=== PATIENT | female | born 1955 | race Caucasian/White ===

== ENCOUNTER 2019-03-15 20:14 | Emergency (ER) | payer OTHER, SELFPAY ==
[2019-03-15 20:21] VITALS: BP 126/80; PULSE 104; RESP 18; TEMP 37.4; O2SAT 100
--- NOTE | 2019-03-15 20:27 | ECG_ITS ---
Measurements Intervals Baker Rate: 98 P: 49 VT: 116 QRS: -26 QRSD: 94 T: 16 QT: 311 QTc: 398 Interpretive Statements SINUS RHYTHM WITH SHORT VT INTERVAL BORDERLINE T WAVE ABNORMALITY- INFERIOR LEADS BASELINE ARTIFACT- I, II, AVR, AVL, AVF, V1, V6 BORDERLINE ECG Electronically Signed On 03-16-2019 7:17:38 BREASTFEEDING PEER COUNSELOR by Sam Wright D.O.
[2019-03-15 20:42] LABS: Basophils Absolute Auto 0.1 K/mm3 (0.0-0.1); Basophils Percent Auto 1.2 % (0.2-1.2); Eosinophils Absolute Auto 0.5 K/mm3 (0-0.3); Hematocrit 40.9 % (37.0-47.0); Hemoglobin 13.5 g/dL (12.0-15.0); Immature Granulocyte Absolute 0.03 K/mm3 (0.00-0.031); Immature Granulocyte Percent A 0.3 % (0-0.5); Lymphocytes Absolute Auto 3.42 K/mm3 (0.9-3.2); Lymphocytes Percent Auto 33.9 % (18.3-44.2); Mean Corpuscular Hemoglobin 30.6 pg (26-34); Mean Corpuscular Volume 92.7 fl (80-100); Mean Platelet Volume 10.1 fl (7.4-10.4); Monocytes Absolute Auto 0.8 K/mm3 (0.1-0.6); Monocytes Percent Auto 8.2 % (2.6-8.5); Neutrophils Absolute Auto 5.2 K/mm3 (1.3-6.7); Neutrophils Percent Auto 51.4 % (45.5-73.1); Platelet Count Result 320 k/mm3 (150-375); Red Blood Count 4.41 M/mm3 (4.2-5.4); Red Cell Distribution Width 13.4 % (11.5-14.5); White Blood Count 10.1 K/mm3 (4.5-10.0)
[2019-03-15 20:51] LABS: INR 0.9; Prothrombin Time 11.6 Seconds (11.1-14.7)
[2019-03-15 20:52] LABS: Partial Thromboplastin Time 27.5 SECONDS (22.3-36.8)
[2019-03-15 20:53] LABS: Blood Urea Nitrogen 12 mg/dL (7-17); Calcium 9.5 mg/dL (8.4-10.2); Carbon Dioxide 26 mmol/L (22-30); Chloride 103 mmol/L (98-107); Estimated CRCL calculation 65 ml/min; Estimated Glomerular Filt Rate > 60; Glucose 107 mg/dL (65-105); Potassium 4.1 mmol/L (3.4-5.0); Sodium 137 mmol/L (137-145)
[2019-03-15 21:05] LABS: Troponin I < 0.012 ng/mL (0.000-0.034)
--- NOTE | 2019-03-15 21:50 | PC.NURSE ---
Pt called for room twice, no response. x ray called for pt, no response in waiting room. Pt last seem walking with family to get some air out of ED waiting room.
== END 2019-03-15 21:50 | disposition left against medical advice (07) ==
PROVIDERS: Emergency Provider Emergency Medicine
DX: R07.9 Chest pain, unspecified (principal)
CPT/HCPCS: 36415; 80048; 84484; 85025; 85610; 85730; 93005; 99199

== ENCOUNTER 2019-12-29 02:56 | Outpatient (CLI) | payer MEDICARE, SELFPAY ==
[2019-12-29 19:46] LABS: SARS-CoV-2 RNA PCR Negative
== END 2019-12-29 02:57 | disposition home or self-care (01) ==
LOC: ANHCOVIDDT 02:56
PROVIDERS: PCP Family Medicine; Visit Provider Podiatrist Foot & Ankle Surgery
DX: Z01.818 Encounter for other preprocedural examination (principal); Z20.828 Contact with and (suspected) exposure to other viral communicable diseases
CPT/HCPCS: 87635; C9803; U0003

== ENCOUNTER 2020-01-01 04:39 | Day surgery (SDC) | payer MEDICARE, SELFPAY ==
[2019-12-24 15:03] VITALS: BMI 25.7
--- NOTE | 2019-12-31 08:45 | WPDANESEPPF ---
Anes - Initial Pre Proc Eval Procedure: Operation Date: 01/01/20 11:30 Proposed Procedures p Arthrodesis First Metatarsophalangeal Joint Right Foot - Tod Bacon JR, MD Date/Time: 12/31/19 08:45 Surgeon: Tod Bacon JR, MD Pre Op Diagnosis: Arthritic Bunion Right Foot Patient Data Age: 64 Gender: F Height: 1.63 m Weight: 68.05 kg Allergies Allergy/AdvReac Type Severity Reaction Status Date / Time DIAL SOAP Allergy Intermediate Hives/ITCHI Uncoded 01/01/20 10:59 NG Home Medications Medication Instructions Recorded Confirmed Type Complete Multivitamin 1 tablet PO DAILY 12/24/19 01/01/20 History ycbczrx-uvvknfcmivgm-zlxyxxpz 1 packet PO QAM 12/24/19 01/01/20 History ibuprofen 800 mg PO QAM 12/24/19 01/01/20 History Patient hx anesthesia problems: none Family hx anesthesia problems: none PMFSH Past Medical History Medical History (Updated 01/04/20 @ 11:52 by Keisha Stewart PA-C) Bunion of great toe of right foot s/p repair Osteoarthritis Surgical History Surgical History History of hysterectomy w/o oophrectomy History of lumbar surgery History of neck surgery History of tonsillectomy Family History Family History (Updated 10/16/19 @ 13:29 by Boyd Dumont MD) Father Lung cancer Mother Breast cancer Hypertension Social History Social History Smoking packs per day: 1 Smoking cigarettes per day: 20.0 Years smoked: 40 Smoking pack-years: 40.00 Smoking status: Former smoker Tobacco type: cigarettes Second hand tobacco smoke exposure: No Smoking end date: 12/16/19 Alcohol intake: current Drinks per week: 3 Substance use: never Substance use type: does not use Living arrangements: with family Gender identity (if verbalized by the patient): Female Spiritual care concerns: No Anes - Eval Final PreProcedure Day of Procedure 12/31/19 08:45 Patient weight: overweight Heart: regular rate and rhythm Lungs: clear to auscultation and normal air movement Airway: Mallampati scale class II Neurological: alert and oriented Last oral intake: >/= 8 hours ASA classification: II Emergent: no Anesthetic plan: proceed Anesthesia type and monitoring: general LMA and standard monitoring Informed Consent: The patient's anesthetic plan and its attendant risks and benefits were discussed with the patient/family/POA. Questions were solicited and answers provided to the satisfaction of the patient/family/POA.
--- NOTE | 2019-12-31 08:49 | WPDANESPNB ---
Anes - Peripheral Nerve Block Date/Time: 12/31/19 08:49 I have discussed with the patient/family/POA the placement of a peripheral nerve block for post-operative pain management, including associated risks, benefits, complications, and side effects. Alternative methods of post-operative analgesia were detailed. Questions were solicited and answers provided to the satisfaction of the patient/family/POA. Time-Out: A pre-procedural Time-Out was completed immediately before starting the procedure and confirmed: Patient Identification, Site, Procedure, Patient Position and the Availability of Requisite Equipment. Clinical Indications: Acute post-operative pain management requested by the operative surgeon. Nerve Block Insertion Note Anes-nerve block: posterior fossa sciatic right and adductor canal right Patient position: supine (for adductor canal) and other (right lateral for popliteal) Skin prep: chlorhexidine Needle: 22 gauge, stimulating, insulated echogenic needle. Needle length: 80 mm Technique: nerve stimulation lost at (mA) (for popliteal lost at 0.2) and ultrasound Injectate: bupivacaine 0.5% with epi 5 mcg/ml (20 mL for popliteal, 10 mL for adductor canal) Observations: tolerated well Complications: none
[2020-01-01] VITALS (7 sets, daily range): BP systolic 111–128; BP diastolic 62–73; PULSE 54–72; RESP 16–20; TEMP 36.3–36.6; O2SAT 96–100
--- NOTE | ~2020-01-01 | XR_ITS ---
XR surgery orthopedic DATE: 01/01/2020 12:41 INDICATION: Right foot arthrodesis TECHNIQUE: AP and lateral spot images of the forefoot 7 seconds fluoroscopy time 0.5729 cGycm2 total DAP COMPARISON: None FINDINGS: There is a plate bridging the dorsal aspect of the first ray from the region of the first m etatarsal neck to the mid to distal shaft of the proximal phalanx, secured by posteroanteriorly direc shital screws at the distal first metatarsal and the proximal to mid shaft of the proximal phalanx. IMPRESSION: First metatarsophalangeal arthrodesis Reviewed, dictated and finalized at [facility]. Reviewed, dictated and finalized at location [facility]. CE TECHNOLOGY PROFESSOR
--- NOTE | 2020-01-01 07:19 | WPDHPUPDATE1 ---
History and Physical Update Update Date/Time: 01/01/20 07:19 History and Physical has been reviewed, including an updated exam of the patient. There are NO changes in the patient's condition. Risks, benefits, and alternatives have been discussed and questions answered. Patient agrees to proceed with procedure.
[2020-01-01] MEDS: LACTATED RINGERS 1,000 ML 30 ML IV CONT (10:30)
[2020-01-01] MEDS: ceFAZolin 2 GM/D5W 50 ML 2 GM/50 ML BAG IVPB (11:37)
[2020-01-01] MEDS: KETOROLAC 30 MG/ML VIAL (*BKC) IV PUSH (12:43)
--- NOTE | 2020-01-01 12:57 | PM.OP ---
Procedure Note - Brief Procedure Note - Brief Date of procedure: 01/01/20 Pre-op diagnosis: Arthritic Bunion Right Foot Post-op diagnosis: same Procedure performed: Arthrodesis of the first metatarsal phalangeal joint right foot Anesthesia: GLMA Surgeon: Tod Bacon JR, DPM Estimated blood loss (mL): 1 Complications: No immediate complications Condition: stable Disposition: same day
--- NOTE | 2020-01-01 23:49 | OP_ITS ---
DATE OF PROCEDURE: 01/01/2020 PREOPERATIVE DIAGNOSIS: Arthritic bunion deformity, right foot. POSTOPERATIVE DIAGNOSIS: Arthritic bunion deformity, right foot. PROCEDURE: Arthrodesis of the 1st metatarsophalangeal joint right foot. PATHOLOGY: None. ANESTHESIA: General with local. HEMOSTASIS: Pneumatic ankle tourniquet at 250 mmHg. ESTIMATED BLOOD LOSS: Minimal. MATERIALS USED: 1 cross check [employer] plate with 4 CicerOOs screws, 3 were 2.7 mm locking screws and 1 was a 3.5 mm nonlocking screw, 3-0 Vicryl, 4-0 Vicryl and 4-0 Monocryl. INJECTABLES: 20 cc of Exparel injected preoperatively. COMPLICATIONS: None. PROCEDURE IN DETAIL: Under mild sedation, the patient was brought into the operative room, placed on the operating room table in the supine position. Pneumatic ankle tourniquet was placed about the patient's right ankle. Following general anesthesia, local anesthesia obtained about the right foot utilizing 20 cc of Exparel. The foot was then scrubbed, prepped, and draped in the usual aseptic manner. An Esmarch bandage was then used to exsanguinate the patient's right foot and the pneumatic ankle tourniquet was then inflated. Attention was directed to the dorsal aspect of the 1st metatarsophalangeal joint of the right foot where incision was made just medial to the extensor hallucis longus tendon. The patient had significant bunion deformity with decreased range of motion and edema present. The incision was continued deep down through the subcutaneous tissues using sharp and blunt dissection. All bleeders were ligated and cauterized as necessary. At this point, a full length periosteal incision was made, a full length of the skin incision, which extended from just proximal to the interphalangeal joint of the hallux and extending to the distal metaphyseal-diaphyseal junction of the 1st metatarsal. The periosteum and capsular structures were freed from the osseous attachments and the base of the proximal phalanx as well as the distal 1st metatarsal were exposed at the operative site. The extensor hallucis longus tendon was retracted laterally. At this point, utilizing the provided CicerOOs reamer system, the denuded and damaged cartilage from both the head of the 1st metatarsal and base of the proximal phalanx was resected. Next, a 2-0 drill bit was used to fenestrate the head of the 1st metatarsal base of the proximal phalanx in order to promote fusion. Next, the [facility] crosscheck plate was placed atop the 1st metatarsophalangeal joint. The 2 distal drill holes were drilled from dorsal to plantar across the proximal phalanx, and two 2.7 locking screws were driven from dorsal to plantar. . Excellent position was noted of the hallux utilizing fluoroscopy with clear reduction of the hallux abductus angle. The hallux was also noted to set in a rectus position in a sagittal plane. No elevatus of the hallux was noted. Next, two proximal holes were drilled, The proximal most being a 3.5 mm nonlocking screw drilled eccentrically that served to provide dynamic compression in order to compress across the 1st metatarsophalangeal joint. Excellent compression was noted. Next, the final 2.7 mm locking screw was driven slightly distal. Once again, fluoroscopy was used to make sure that there was adequate compression across the 1st metatarsophalangeal joint and also to make sure that the screws and plate were appropriately aligned and oriented. The wound site was then flushed with copious amounts of sterile saline. Next, the periosteum and capsular structures were reapproximated coapted utilizing 3-0 PDS. Next, the subcutaneous structures were reapproximated and coapted utilizing 4-0 Vicryl. Next, the skin was reapproximated and coapted utilizing 4-0 Monocryl in a
== END 2020-01-01 14:33 | disposition home or self-care (01) ==
PROVIDERS: PCP Family Medicine; Visit Provider Podiatrist Foot & Ankle Surgery
PROC: (CPT 28750; principal; 2020-01-01 11:30)
DX: M21.611 Bunion of right foot (principal); Z87.891 Personal history of nicotine dependence
CPT/HCPCS: 28750; C1713; C9290; C9803; J0690; J1100; J1885; J2250; J2405; J2704; J3010; J7120; U0003

== ENCOUNTER 2021-06-06 08:40 | Outpatient (CLI) | payer MEDICARE, SELFPAY ==
--- NOTE | ~2021-06-06 | XR_ITS ---
XR_FOOTSTNDR3_CR DATE: 06/06/2021 09:57 INDICATION: Right foot pain TECHNIQUE: 4 views COMPARISON: None FINDINGS: There is surgical fusion with plate and screws along the dorsal aspect of the first metatar sophalangeal joint. There is mild plantar calcaneal enthesopathy. There is diffuse osteopenia. No fracture or dislocation, periosteal reaction or bone destruction. IMPRESSION: Status post arthrodesis at first metatarsophalangeal joint Mild plantar calcaneal enthesopathy Reviewed, dictated and finalized at [facility]. Reviewed, dictated and finalized at location [facility].
== END 2021-06-06 08:41 ==
PROVIDERS: PCP Physician Assistant; Visit Provider Physician Assistant
DX: M79.671 Pain in right foot (principal); M77.31 Calcaneal spur, right foot
CPT/HCPCS: 73630

== ENCOUNTER 2022-08-02 11:22 | Outpatient (CLI) | payer MEDICARE, SELFPAY ==
--- NOTE | ~2022-08-02 | XR_ITS ---
Left Shoulder Technique: AP and scapular Y views were obtained. Clinical History: Pain Findings: No fracture or dislocation is seen. Osseous alignment is anatomic. Inferomedial humeral hea d osteophyte is present, with diffuse joint space narrowing. Soft tissues are unremarkable. Impression: Moderate 2 advanced glenohumeral joint degenerative change, as detailed above. Reviewed, dictated and finalized at location . Impression: Moderate 2 advanced glenohumeral joint degenerative change, as detailed above.
--- NOTE | ~2022-08-02 | CT_ITS ---
EXAMINATION: CT brain wo con DATE: 08/02/2022 12:10 INDICATION: Unspecified headache TECHNIQUE: Computed tomography (CT) of the head was performed without intravenous contrast. Sagittal and coronal reconstructions were performed. The mA was adjusted according to patient size. Iterative reconstruction technique was employed. The dose-length product was 605.33 mGy-cm. COMPARISON: None FINDINGS: No acute intracranial hemorrhage, acute infarction or abnormal extra axial fluid collection. There is minimal scattered white matter hypoattenuation consistent with chronic small vessel ischemic disease . Ventricles are normal and symmetric. No mass/mass effect. The orbits, paranasal sinuses and mastoid air cells are normal. IMPRESSION: 1. Normal aging brain. No acute intracranial process. Reviewed, dictated and finalized at location [facility].
== END 2022-08-02 11:23 | disposition home or self-care (01) ==
PROVIDERS: PCP Family Medicine; Visit Provider Physician Assistant
DX: H53.9 Unspecified visual disturbance (principal); R29.898 Other symptoms and signs involving the musculoskeletal system; R51.9 Headache, unspecified; R55 Syncope and collapse; M19.012 Primary osteoarthritis, left shoulder
CPT/HCPCS: 70450; 73030

== ENCOUNTER 2022-08-23 11:14 | Outpatient (CLI) | payer MEDICARE, SELFPAY ==
--- NOTE | ~2022-08-23 | US_ITS ---
EXAMINATION: US carotid duplex BI DATE: 08/23/2022 12:37 INDICATION: Transient cerebral ischemic attack. TECHNIQUE: Grayscale, color Doppler, and pulsed Doppler images of the cervical carotid arteries were obtained. The degree of vessel stenosis is placed in one of the following categories: normal, <50%, 5 0-69%, >=70% but less than near-occlusion, near-occlusion, or total occlusion. Note that percent sten osis relative to normal distal artery lumen diameter is indirectly measured from velocity measurement s as described by Gómez, et al. Radiology 2003; 229:340-346. COMPARISON: None. FINDINGS: RIGHT: The right common carotid artery (CCA) peak systolic velocity (PSV) is 108 cm/s. The right internal ca rotid artery (ICA) PSV is 111 cm/s. The right ICA end-diastolic velocity (EDV) is 40 cm/s. The right ICA/CCA PSV ratio is 1.0. Grayscale and color Doppler images yield an estimate of <50% diameter reduc tion from plaque in the ICA. The external carotid artery (ECA) PSV is 87 cm/s. There is antegrade stacia w in the right vertebral artery. LEFT: The left CCA PSV is 87 cm/s. The left ICA PSV is 88 cm/s. The left ICA EDV is 37 cm/s. The left ICA/C CA PSV ratio is 1.0. Grayscale and color Doppler images yield an estimate of <50% diameter reduction from plaque in the ICA. The ECA PSV is 89 cm/s. There is antegrade flow in the left vertebral artery. IMPRESSION: 1. <50% stenosis in the right internal carotid artery. 2. <50% stenosis in the left internal carotid artery. Reviewed, dictated and finalized at location [facility].
== END 2022-08-23 11:15 | disposition home or self-care (01) ==
PROVIDERS: PCP Family Medicine; Visit Provider Physician Assistant
DX: I65.23 Occlusion and stenosis of bilateral carotid arteries (principal)
CPT/HCPCS: 93880

== ENCOUNTER 2023-01-07 12:24 | Outpatient (CLI) | payer MEDICARE, SELFPAY ==
--- NOTE | ~2023-01-07 | CT_ITS ---
CT Scan of the Chest without Contrast: Clinical Indication: Lung cancer screening, personal history of nicotine dependence Technique: Contiguous sections were acquired throughout the chest without intravenous contrast. Dose reduction technique was used on this scan by utilizing automated exposure control and iterative recon struction technique. The dose-length product (DLP) was 164.50 mGy-cm. Findings: There is no evidence of any significant mediastinal, hilar or axillary lymphadenopathy. The mediastin al soft tissues appear normal. There is no evidence of pleural or pericardial effusion. Calcified left upper lobe granuloma noted. No other pulmonary nodule seen. Images through the upper abdomen reveal no abnormalities. Impression: Lung RADS 2: Benign appearance. 12 month follow-up screening CT advised. Reviewed, dictated and finalized at location . TIVE SERVICES COORDINATOR Impression: Lung RADS 2: Benign appearance. 12 month follow-up screening CT advised.
== END 2023-01-07 12:25 | disposition home or self-care (01) ==
LOC: ANHIMG 12:25
PROVIDERS: PCP Family Medicine; Visit Provider Physician Assistant
DX: Z12.2 Encounter for screening for malignant neoplasm of respiratory organs (principal); Z87.891 Personal history of nicotine dependence
CPT/HCPCS: 71271

== ENCOUNTER 2023-02-13 11:52 | Outpatient (CLI) | payer OTHER, SELFPAY ==
--- NOTE | ~2023-02-13 | XR_ITS ---
XR shoulder LT min 2V DATE: 02/13/2023 12:11 INDICATION: Primary osteoarthritis, left shoulder TECHNIQUE: 4 views COMPARISON: 08/02/2022 left shoulder FINDINGS: There is severe joint space narrowing and prominent at spurring at the left glenohumeral juan c int consistent with severe primary osteoarthritis. Normal alignment at the acromioclavicular and glenohumeral joints. Diffuse osteopenia. The left shoulder fracture or dislocation, periosteal reaction or bone destruction or abnormal soft t issue calcification. Aortic arch calcification. Status post anterior lower cervical spine surgical fusion. Thoracic levoscoliosis. IMPRESSION: Severe primary osteoarthritis at left glenohumeral joint Osteopenia Reviewed, dictated and finalized at location [facility]. SFORMER TESTER
== END 2023-02-13 11:53 | disposition home or self-care (01) ==
PROVIDERS: PCP Family Medicine; Visit Provider Orthopaedic Surgery
DX: M19.012 Primary osteoarthritis, left shoulder (principal); M85.812 Other specified disorders of bone density and structure, left shoulder
CPT/HCPCS: 73030

== ENCOUNTER 2023-06-25 15:51 | Outpatient (CLI) | payer OTHER, SELFPAY ==
--- NOTE | ~2023-06-25 | MM_ITS ---
EXAMINATION: MM screening khurram BI w syed HISTORY: Screening mammogram TECHNIQUE: Craniocaudal and mediolateral oblique 3-D tomosynthesis images were obtained and synthetic 2-D images were generated. CAD analysis was submitted and interpreted. COMPARISON: 12/23/2008 bilateral screening mammogram BREAST PARENCHYMAL COMPOSITION: There are scattered areas of fibroglandular density. FINDINGS: Stable mild fibroglandular asymmetry in the upper outer right breast, also present on 12/23. Scattered bilateral benign calcifications. There is no evidence of suspicious mass, calcificat ion, or architectural distortion to suggest malignancy in either breast. There has been no suspicious interval change. IMPRESSION: 1. No mammographic evidence of malignancy. 2. Recommend routine screening mammography in one year. BI-RADS Category 1: Negative Reviewed, dictated and finalized at location A.
== END 2023-06-25 15:52 | disposition home or self-care (01) ==
PROVIDERS: PCP Family Medicine; Visit Provider Physician Assistant Medical
DX: Z12.31 Encounter for screening mammogram for malignant neoplasm of breast (principal); Z80.3 Family history of malignant neoplasm of breast
CPT/HCPCS: 77063; 77067

== ENCOUNTER 2023-10-01 02:21 | Day surgery (SDC) | payer OTHER, SELFPAY ==
[2023-09-12 12:38] VITALS: BMI 29.2
[2023-10-01 09:37] VITALS: BP 119/96; PULSE 100; RESP 20; TEMP 36.4; O2SAT 99; BMI 29.9
[2023-10-01] MEDS: LACTATED RINGERS 1,000 ML 150 ML IV CONT (09:53)
--- NOTE | 2023-10-01 10:08 | WPDANESEPPF ---
Anes - Initial Pre Proc Eval Procedure: Operation Date: 10/01/23 11:00 Proposed Procedures p Screening Colonoscopy - Danny He MD Date/Time: 10/01/23 10:08 Surgeon: Danny He MD Pre Op Diagnosis: neoplasm screening Patient Data Age: 67 Gender: F Height: 1.63 m Weight: 79.1 kg Last Vital Signs Temp 97.6 F 10/01/23 09:37 Pulse 100 10/01/23 09:37 Resp 20 10/01/23 09:37 BP 119/96 H 10/01/23 09:37 Pulse Ox 99 10/01/23 09:37 O2 Del Method Room Air 10/01/23 09:37 Allergies Allergy/AdvReac Type Severity Reaction Status Date / Time DIAL SOAP Allergy Intermediate Hives/ITCHI Uncoded 10/01/23 09:36 NG Home Medications Medication Instructions Recorded Confirmed Type ibuprofen 800 mg tablet 800 mg PO QAM PAIN 12/24/19 10/01/23 History multivitamin,qs-fiik-ksvyhmld 1 tablet PO DAILY 12/24/19 10/01/23 History (Complete Multivitamin tablet) Patient hx anesthesia problems: none Family hx anesthesia problems: none Results Review: All pre-operative results and documents have been reviewed as part of the pre-operative evaluation. [facility] Past Medical History Medical History Bunion of great toe of right foot s/p repair DJD of left shoulder History of stroke Osteoarthritis Surgical History Surgical History History of foot surgery History of hysterectomy w/o oophrectomy History of lumbar surgery History of neck surgery History of tonsillectomy Family History Family History Father Lung cancer Mother Breast cancer Hypertension Social History Social History Smoking packs per day: 0.5 Smoking cigarettes per day: 10.0 Years smoked: 40 Smoking pack-years: 20.00 Smoking status: Current every day smoker Tobacco type: cigarettes Second hand tobacco smoke exposure: No Smoking end date: 12/16/19 Alcohol intake: current Drinks per week: 1 Alcohol use details: Rarely Substance use: never Substance use type: does not use Living arrangements: other Additional living arrangements comments: with natalio Hay Occupation/Education: occupation Gender identity (if verbalized by the patient): Female Spiritual care concerns: No Anes - Eval Final PreProcedure Day of Procedure 10/01/23 10:08 Patient weight: normal Heart: regular rate and rhythm Lungs: clear to auscultation Airway: Mallampati scale class II Neurological: alert and oriented Last oral intake: >/= 8 hours ASA classification: III Emergent: no Anesthetic plan: proceed Anesthesia type and monitoring: general GIVS and standard monitoring Results Review: All pre-operative results and documents have been reviewed as part of the pre-operative evaluation. Informed Consent: The patient's anesthetic plan and its attendant risks and benefits were discussed with the patient/family/POA. Questions were solicited and answers provided to the satisfaction of the patient/family/POA.
--- NOTE | 2023-10-01 10:35 | PM.HPGS ---
History of Present Illness History of Present Illness Consent: Risks, benefits, and alternatives have been discussed and questions answered. Patient agrees to proceed with procedure. Chief complaint: neoplasm screening Narrative: Saritha Coello is a 67 year old female here for screening colonoscopy, last one about 8 years ago Review of Systems Review of Systems: All systems reviewed & are unremarkable except as noted in HPI and below PMFSH Past Medical History Medical History (Updated 10/01/23 @ 10:36 by Danny He MD) Bunion of great toe of right foot s/p repair Colon cancer screening DJD of left shoulder History of stroke Osteoarthritis Surgical History Surgical History History of foot surgery History of hysterectomy w/o oophrectomy History of lumbar surgery History of neck surgery History of tonsillectomy Family History Family History Father Lung cancer Mother Breast cancer Hypertension Social History Social History Smoking packs per day: 0.5 Smoking cigarettes per day: 10.0 Years smoked: 40 Smoking pack-years: 20.00 Smoking status: Current every day smoker Tobacco type: cigarettes Second hand tobacco smoke exposure: No Smoking end date: 12/16/19 Alcohol intake: current Drinks per week: 1 Alcohol use details: Rarely Substance use: never Substance use type: does not use Living arrangements: other Additional living arrangements comments: with natalio Hay Occupation/Education: occupation Gender identity (if verbalized by the patient): Female Spiritual care concerns: No Meds Home Medications and Allergies Home Medications Medication Instructions Recorded Confirmed Type ibuprofen 800 mg tablet 800 mg PO QAM PAIN 12/24/19 10/01/23 History multivitamin,vf-hnpo-ynbqmopc 1 tablet PO DAILY 12/24/19 10/01/23 History (Complete Multivitamin tablet) Allergies Allergy/AdvReac Type Severity Reaction Status Date / Time DIAL SOAP Allergy Intermediate Hives/ITCHI Uncoded 10/01/23 09:36 NG Vital Signs Vital Signs - 24 hr 10/01/23 09:37 Temperature 97.6 F Pulse Rate 100 Respiratory Rate 20 Blood Pressure 119/96 H Pulse Oximetry 99 Oxygen Delivery Room Air Exam Const: General: comfortable and no acute distress HENMT: Face/Nose/Sinus: Normal nares present Eyes: General: appearance normal, both eyes and all related structures Neck: Neck: no JVD Resp: Auscultation: clear to auscultation bilaterally Cardio: Rate: regular rate Rhythm: regular rhythm GI: Inspection: non-distended GI Palp: Yes Soft to palpation Skin: General skin exam: normal color Neuro: General: gait normal Speech: normal speech Extrem: General: normal to inspection Psych: Mental Status: mental status grossly normal Assessment and Plan Assessment and plan (1) Colon cancer screening: Code(s): Z12.11 - Encounter for screening for malignant neoplasm of colon Status: Acute Assessment and Plan: colonoscopy
[2023-10-01 10:53] VITALS: BP 81/41; PULSE 60; RESP 23; O2SAT 93
[2023-10-01 11:03] VITALS: BP 106/62; PULSE 68; RESP 24; O2SAT 98
[2023-10-01 11:13] VITALS: BP 107/64; PULSE 58; RESP 20; O2SAT 98
== END 2023-10-01 11:26 | disposition home or self-care (01) ==
PROVIDERS: PCP Family Medicine; Referring Provider Physician Assistant Medical; Visit Provider Internal Medicine Gastroenterology
PROC: 0DJD8ZZ Inspection of Lower Intestinal Tract, Via Natural or Artificial Opening Endoscopic (ICD-10-PCS; CPT 45378; principal; 2023-10-01 11:00)
DX: Z12.11 Encounter for screening for malignant neoplasm of colon (principal); D12.2 Benign neoplasm of ascending colon; D12.3 Benign neoplasm of transverse colon; M19.012 Primary osteoarthritis, left shoulder; F17.210 Nicotine dependence, cigarettes, uncomplicated; Z79.1 Long term (current) use of non-steroidal anti-inflammatories (NSAID); Z98.890 Other specified postprocedural states; Z98.1 Arthrodesis status; Z86.73 Personal history of transient ischemic attack (TIA), and cerebral infarction without residual deficits; Z80.1 Family history of malignant neoplasm of trachea, bronchus and lung; Z80.3 Family history of malignant neoplasm of breast
CPT/HCPCS: 45385; 88305; J2704; J7120

== ENCOUNTER 2024-01-14 10:57 | Outpatient (CLI) | payer OTHER, SELFPAY ==
--- NOTE | ~2024-01-14 | CT_ITS ---
CT Scan of the Chest without Contrast: Clinical Indication: Lung cancer screening, nicotine dependence Technique: Contiguous sections were acquired throughout the chest without intravenous contrast. Dose reduction technique was used on this scan by utilizing automated exposure control and iterative recon struction technique. The dose-length product (DLP) was 159.03 mGy-cm. COMPARISON: 01/07/2023 Findings: There is no evidence of any significant mediastinal, hilar or axillary lymphadenopathy. The mediastin al soft tissues appear normal. There is no evidence of pleural or pericardial effusion. Calcified left upper lobe granuloma noted. No other pulmonary nodule evident. Images through the upper abdomen reveal moderate hiatal hernia. There is extensive degenerative spond ylosis of the spine. Impression: Lung RADS 1: Negative. 12 month follow-up screening CT advised. Reviewed, dictated and finalized at [facility]. FING ADMINISTRATOR Impression: Lung RADS 1: Negative. 12 month follow-up screening CT advised.
== END 2024-01-14 10:58 | disposition home or self-care (01) ==
PROVIDERS: PCP Family Medicine; Visit Provider Physician Assistant Medical
DX: Z12.2 Encounter for screening for malignant neoplasm of respiratory organs (principal); Z87.891 Personal history of nicotine dependence
CPT/HCPCS: 71271